=== PATIENT | female | born 1940 | race Caucasian/White ===

== ENCOUNTER → 2016-08-26 | Day surgery (SDC) | payer MEDICARE ==
[~2016-08-26] MED LIST: ALPR.5 PO; AMIO200T PO; ASPI81TA81 PO; BUME1TAB26 PO; BUPIVACAINE HCL PF 0.5% 10 ML VIAL ONE; BUPR150XL PO; CLINDAMYCIN PHOS 600 MG/4 ML VIAL ONE; COUM3TAB PO; DEXA2TAB PO; FAMO20TA2 PO; JUSTSOL EACH EYE; K-TA10TA PO; LACTATED RINGER'S 1000 ML INJ 1,000 ML ONE; LOSA25TA31 PO; METO25TA3 PO; MEVA40TA6 PO; NORV2.5T11 PO; POLY99.0 EACH EYE; PRIL20CA9 PO; TEMA30CA PO
== END | disposition home or self-care (01) ==
LOC: ESDC 12:20
PROVIDERS: ATTEND Podiatrist Foot & Ankle Surgery
DX: M77.41 Metatarsalgia, right foot (principal); Z01.810 Encounter for preprocedural cardiovascular examination; Z53.9 Procedure and treatment not carried out, unspecified reason
CPT/HCPCS: 93005; G0463; 99211; J7120

== ENCOUNTER 2016-11-08 12:49 | Emergency (ER) | payer MEDICARE ==
[~2016-11-08] VITALS: Ht 157.5 cm; Wt 52.7 kg
[~2016-11-08 12:49] MED LIST changes: -ALPR.5 PO; -AMIO200T PO; -ASPI81TA81 PO; -BUME1TAB26 PO; -BUPIVACAINE HCL PF 0.5% 10 ML VIAL ONE; -BUPR150XL PO; -CLINDAMYCIN PHOS 600 MG/4 ML VIAL ONE; -COUM3TAB PO; -DEXA2TAB PO; -FAMO20TA2 PO; -JUSTSOL EACH EYE; -K-TA10TA PO; -LACTATED RINGER'S 1000 ML INJ 1,000 ML ONE; -METO25TA3 PO; -POLY99.0 EACH EYE; -PRIL20CA9 PO; -TEMA30CA PO
[2016-11-08 12:51] VITALS: BP 133/60; PULSE 60; RESP 20; TEMP 97.3; O2SAT 95
--- NOTE | 2016-11-08 13:42 | PD ---
Physical Exam Time Seen by Provider: 13:39 Narrative 76 y/o female here for evaluation of depression. She reports that she underwent cardiac surgery early september and she has been feeling depressed since then. Sent here by PCP. Denies SI/HI, drug/etoh abuse. VSS Seen at triage desk. Awaiting bed placement. Data Data Last Documented VS Vital Signs Date Time Temp Pulse Resp B/P Pulse Ox O2 Delivery O2 Flow Rate FiO2 11/08/16 12:51 97.3 60 20 133/60 95 Room Air [facility] Medical Record Reviewed: Yes Supervised Visit with DANDY: Andrez Hernandez November 08, 2016 13:42
--- NOTE | 2016-11-08 15:10 | PD ---
HPI Chief Complaint: Anxiety Time Seen by Provider: 15:00 Travel History International Travel<30 days: No Contact w/Intl Traveler<30days: No Traveled to known affect area: No History of Present Illness HPI 76-year-old female with PMH of anxiety, depression, HTN, recent open heart surgery and ablation presents to the ED for evaluation of anhedonia and depression. The patient's daughter is at bedside and helps to provide the history. The patient underwent valve replacement and ablation at [facility] the beginning of the year. This was followed by a second hospitalization to treat pneumonia and CHF. She is been physically well since that time. She denies somatic complaints on presentation. However, the patient states that she has been feeling depressed, has no appetite, no interest in returning to work or participating in her normal activities. She also complains of insomnia, states she is only sleeping a few hours per night. She denies suicidal or homicidal ideation. The patient endorses history of ECT treatments in the 1979's and early 1999' and thinks that this is the only thing that will help her. She is currently being treated for anxiety with alprazolam. She saw her primary care provider today who increased her dose of alprazolam and wrote her an unknown prescription to help with sleep. The PCP also told her to seek treatment at the "psychiatric emergency room at [place]." PFS Past Medical History Arthritis: Yes (KAMINI HANDS) Asthma: No Autoimmune Disease: No Blood Disorders: No Anxiety: No Depression: No Heart Rhythm Problems: Yes (TACHY) Cancer: No Cardiac Catheterization: Yes Cardiovascular Problems: Yes High Cholesterol: No Chest Pain: No Congestive Heart Failure: No COPD: No Cerebrovascular Accident: No Diabetes: No Diminished Hearing: No Endocrine: No Glaucoma: No Genitourinary: No Headaches: Yes (BASE SKULL MOVES UP HEAD) Hypertension: Yes Immune Disorder: No Musculoskeletal: No Neurologic: No Psychiatric: No Reproductive: No Respiratory: No Migraines: No Myocardial Infarction: No Seizures: No Thyroid Disease: No Menopausal: Yes Past Surgical History Abdominal Surgery: No AICD: No Arteriovenous Shunt: No Cardiac Surgery: No Ear Surgery: No Endocrine Surgery: No Eye Surgery: No Genitourinary Surgery: No Gynecologic Surgery: Yes (HYSTERECTOMY) Hysterectomy: Yes Insulin Pump: No Joint Replacement: No Oral Surgery: No Pacemaker: No Thoracic Surgery: No Other Surgery: Yes (SURGERY TO FOOT APPROX. 1MONTH AGO) Social History Alcohol Use: No Tobacco Use: No Substance Use: No Allergies-Medications (Allergen,Severity, Reaction): Coded Allergies: Pen-Vee K (Verified Allergy, Severe, 11/08/16) Penicillin (Verified Allergy, Severe, 11/08/16) Sulfa (Verified Allergy, Severe, 11/08/16) Zoloft (Verified Allergy, Unknown, 11/08/16) Enalapril (Verified Adverse Reaction, Severe, 11/08/16) PANIC ATTACKS Reported Meds & Prescriptions Reported Meds & Active Scripts Active Reported Dexamethasone 2 Mg Tab 2 Mg PO DAILY Wellbutrin Xl 24 HR (Bupropion HCl) 150 Mg Tab 150 Mg PO DAILY K-Tab (Potassium Chloride) 10 Meq Tab 10 Meq PO DAILY Metoprolol Tartrate 25 Mg Tab 12.5 Mg PO BID Bumex (Bumetanide) 1 Mg Tab 1 Mg PO BID Aspir-81 (Aspirin) 81 Mg Tabdr 81 Mg PO DAILY Coumadin (Warfarin) 3 Mg Tab 3 Mg PO DAILY@1600 Just Tears Eye Drops (Artificial Tear Solution Opth Drops) 1 Linda Linda 1 Drop EACH EYE DAILY Amiodarone (Amiodarone HCl) 200 Mg Tab 200 Mg PO DAILY Xanax (Alprazolam) 0.5 Mg Tab 0.5 Mg PO BID Review of Systems General / Constitutional: No: Fever, Chills, Weight Gain, Weight Loss, Other Eyes: No: Blurred Vision, Visual changes HENT: No: Lightheadedness, Sore Throat, Rhinorrhea Cardiovascular: No: Chest Pain or Discomfort, Palpitations, Irregular Rhythm, Diaphoresis, Syncope, Edema Respiratory: No: Cough, Shortness of Breath Gastrointestinal: Positive: Loss of Appetite, No: Nausea, Vomiting, Abdominal Pain, Changes in Bowel Habits Genitourinary: No: Urgency, Frequency Musculoskeletal: No: Weakness, Edema Neurologic: No: Weakness, Dizziness, Syncope, Change in Mentation Psychiatric: Positive: Anxiety, Depression, No: Suicidal Ideations, Substance Abuse, Homicidal Ideation Hematologic/Lymphatic: Positive: Easy Bruising Physical Exam Narrative GENERAL: Well-nourished, well-developed petite white female in no acute distress. SKIN: Focused skin assessment warm/dry. Multiple old contusions without signs of infection. HEAD: Normocephalic. EYES: No scleral icterus. No injection or drainage. NECK: Supple, trachea midline. No JVD or lymphadenopathy. CARDIOVASCULAR: Regular rate and rhythm without murmurs, gallops, or rubs. 2+ DP and radial pulses bilaterally. RESPIRATORY: Breath sounds clear and equal bilaterally. No accessory muscle use. GASTROINTESTINAL: Abdomen soft, non-tender, nondistended. Active bowel sounds. MUSCULOSKELETAL: No cyanosis, or edema. The patient is ambulatory and moves extremities spontaneously. BACK: Nontender without obvious deformity. No CVA tenderness. Data Data Last Documented VS Vital Signs Date Time Temp Pulse Resp B/P Pulse Ox O2 Delivery O2 Flow Rate FiO2 11/08/16 19:13 55 16 177/72 96 Room Air 11/08/16 12:51 97.3 Orders Complete Blood Count With Diff (11/08/16 14:58) Comprehensive Metabolic Panel (11/08/16 14:58) Thyroid Stimulating Hormone (11/08/16 14:58) Urinalysis - C+S If Indicated (11/08/16 14:58) Oximetry (11/08/16 14:58) Iv Access Insert/Monitor (11/08/16 14:58) Ecg Monitoring (11/08/16 14:58) Drug Screen, Random Urine (11/08/16 14:58) Labs Laboratory Tests Test 11/08/16 11/08/16 15:45 16:00 White Blood Count 13.6 TH/MM3 Red Blood Count 4.49 MIL/MM3 Hemoglobin 13.0 GM/DL Hematocrit 38.8 % Mean Corpuscular Volume 86.4 FL Mean Corpuscular Hemoglobin 29.0 PG Mean Corpuscular Hemoglobin 33.5 % Concent Red Cell Distribution Width 16.0 % Platelet Count 272 TH/MM3 Mean Platelet Volume 8.3 FL Neutrophils (%) (Auto) 85.4 % Lymphocytes (%) (Auto) 6.0 % Monocytes (%) (Auto) 8.4 % Eosinophils (%) (Auto) 0.1 % Basophils (%) (Auto) 0.1 % Neutrophils # (Auto) 11.6 TH/MM3 Lymphocytes # (Auto) 0.8 TH/MM3 Monocytes # (Auto) 1.1 TH/MM3 Eosinophils # (Auto) 0.0 TH/MM3 Basophils # (Auto) 0.0 TH/MM3 CBC Comment DIFF FINAL Differential Comment Sodium Level 136 MEQ/L Potassium Level 4.1 MEQ/L Chloride Level 95 MEQ/L Carbon Dioxide Level 31.6 MEQ/L Anion Gap 9 MEQ/L Blood Urea Nitrogen 45 MG/DL Creatinine 1.20 MG/DL Estimat Glomerular Filtration 43 ML/MIN Rate Random Glucose 95 MG/DL Calcium Level 9.4 MG/DL Total Bilirubin 0.4 MG/DL Aspartate Amino Transf 53 U/L (AST/SGOT) Alanine Aminotransferase 86 U/L (ALT/SGPT) Alkaline Phosphatase 129 U/L Total Protein 7.4 GM/DL Albumin 3.8 GM/DL Thyroid Stimulating Hormone 0.775 uIU/ML 3rd Gen Urine Color YELLOW Urine Turbidity CLEAR Urine pH 6.5 Urine Specific [place] 1.018 Urine Protein NEG mg/dL Urine Glucose (UA) NEG mg/dL Urine Ketones NEG mg/dL Urine Occult Blood NEG Urine Nitrite NEG Urine Bilirubin NEG Urine Urobilinogen LESS THAN 2.0 MG/DL Urine Leukocyte Esterase LARGE Urine RBC 1 /hpf Urine WBC 5 /hpf Urine Squamous Epithelial 4 /hpf Cells Urine Hyaline Casts 5 /lpf Urine Mucus FEW /lpf Microscopic Urinalysis Comment CULT NOT INDICATED MDM Medical Decision Making Medical Screen Exam Complete: Yes Emergency Medical Condition: Yes Differential Diagnosis Adjustment disorder versus anxiety versus bipolar versus depression versus dementia versus electrolyte disorder versus malingering versus mood disorder versus ODD versus psychosis versus PTSD versus schizophrenia versus schizoaffective disorder versus substance-induced mood disorder versus other Narrative Course 76-year-old female with PMH of anxiety, depression, HTN, recent open heart surgery and ablation presents to the ED for evaluation of anhedonia and depression. The patient's daughter is at bedside and helps to provide the history. The patient underwent valve replacement and ablation at [facility] the beginning of the year. This was followed by a second hospitalization to treat pneumonia and CHF. She is been physically well since that time. She denies somatic complaints on presentation. However, the patient states that she has been feeling depressed, has no appetite, no interest in returning to work or participating in her normal activities. She also complains of insomnia, states she is only sleeping a few hours per night. She denies suicidal or homicidal ideation. The patient endorses history of ECT treatments in the s and early and thinks that this is the only thing that will help her. She is currently being treated for anxiety with alprazolam. She saw her primary care provider today who increased her dose of alprazolam and wrote her an unknown prescription to help with sleep. The PCP also told her to seek treatment at the "psychiatric emergency room at [place]." Vitals reviewed. Physical exam reveals a well-appearing white female in no acute distress. Chest clear auscultation bilaterally. Abdomen soft, nontender. No CVA tenderness. No lower extremity edema. CBC: WBC 13.6, hemoglobin 13.0 CMP: BUN 45, creatinine 1.2. AST 53, ALT 86 TSH 0.775 UA: No culture indicated Drug screen: Patient was hospitalized for PNA and CHF October 19. She is currently taking steroids. I reviewed the patient's chest CT taken at [facility] dated : Mildly elevated right diaphragm with right base atelectasis. Minimal left upper lobe infiltrate. Small solid nodular density in the right lung apex. Mild nodularity of the posterior right pleura. Follow-up CT recommended in 3-4 months. This is being followed by the PCP. The psych nurse came and discussed the outpatient resources available to the patient and her family. During this time the patient states that she was seen by a psychiatrist earlier this month. She certainly doesn't meet [place] Act criteria at this time and seems to have multiple outpatient resources. She's discharged home for outpatient follow up. Diagnosis Primary Impression: Anxiety Additional Impression: Depression Qualified Code: F32.9 - Depression, unspecified depression type Referrals: Primary Care Physician Psychiatrist Patient Instructions: Anxiety (ED), Depression (ED), General Instructions Additional Instructions: Follow up with your primary care provider and psychiatrist as discussed. Return to the ED for any urgent or emergent medical condition. Disposition: 01 DISCHARGE HOME Condition: Stable Frannie Olguin November 08, 2016 15:10 Frannie Olguin November 08, 2016 15:10
[2016-11-08 15:53] VITALS: BP 151/67; PULSE 53; RESP 16; O2SAT 96
[2016-11-08 16:20] LABS: AUTOMATED NEUTROPHIL # 11.6 TH/MM3 (1.8-7.7); BASOPHIL % 0.1 % (0.0-2.0); EOSINOPHIL % 0.1 % (0.0-4.0); HEMATOCRIT 38.8 % (35.0-46.0); HEMO FLAGS DIFF FINAL; LYMPHOCYTE # 0.8 TH/MM3 (1.0-4.8); MEAN CELL VOLUME 86.4 FL (80.0-100.0); MEAN CORPUSCULAR HGB CONC 33.5 % (32.0-36.0); MONO % 8.4 % (0.0-8.0); NEUT % 85.4 % (16.0-70.0); PLATELET COUNT 272 TH/MM3 (150-450); RED BLOOD COUNT 4.49 MIL/MM3 (4.00-5.30); WHITE BLOOD COUNT 13.6 TH/MM3 (4.0-11.0)
[2016-11-08 16:51] LABS: ALKALINE PHOSPHATASE 129 U/L (45-117); ALT (GPT) 86 U/L (10-53); TOTAL BILIRUBIN ADULT 0.4 MG/DL (0.2-1.0)
[2016-11-08 17:03] LABS: BLOOD, URINE NEG (NEG); GLUCOSE,URINE NEG (NEG); HYALINE CAST, URINE 5 /lpf (RARE); KETONE, URINE NEG (NEG); MUCUS URINE FEW /lpf (OCC); NITRITE,URINE NEG (NEG); PH, URINE 6.5 (5.0-8.5); SQUAMOUS EPITHELIAL CELL URINE 4 /hpf (0-5); URINE COLOR YELLOW (YELLW/STRAW)
[2016-11-08 17:04] LABS: COMMENT (UR) CULT NOT INDICATED; CULTURE IF INDICATED CULT NOT INDICATED
[2016-11-08 17:14] LABS: ANION GAP 9 MEQ/L (5-15); AST (GOT) 53 U/L (15-37); BICARBONATE 31.6 MEQ/L (21.0-32.0); BLOOD UREA NITROGEN 45 MG/DL (7-18); CHLORIDE 95 MEQ/L (98-107); GLOMERULAR FILTRATION RATE 43 ML/MIN (>89); POTASSIUM 4.1 MEQ/L (3.5-5.1); SODIUM (NA) 136 MEQ/L (136-145)
[2016-11-08] MEDS ORDERED: ALPR.5 PO (18:20)
[2016-11-08] MEDS ORDERED: COUM3TAB PO (18:28)
[2016-11-08] MEDS ORDERED: AMIO200T PO (18:28)
[2016-11-08] MEDS ORDERED: BUME1TAB26 PO (18:28)
[2016-11-08] MEDS ORDERED: K-TA10TA PO (18:28)
[2016-11-08] MEDS ORDERED: ASPI81TA81 PO (18:28)
[2016-11-08] MEDS ORDERED: METO25TA3 PO (18:28)
[2016-11-08] MEDS ORDERED: DEXA2TAB PO (18:28)
[2016-11-08] MEDS ORDERED: BUPR150XL PO (18:28)
[2016-11-08] MEDS ORDERED: JUSTSOL EACH EYE (18:28)
[2016-11-08 19:13] VITALS: BP 177/72; PULSE 55; RESP 16; O2SAT 96
[2016-11-09 00:43] LABS: AMPHETAMINE, URINE NEG (NEG); BARBITURATES, URINE NEG (NEG); COCAINE, URINE NEG (NEG)
== END 2016-11-08 20:01 | disposition home or self-care (01) ==
LOC: NEPD 12:49
DX: F41.8 Other specified anxiety disorders (principal); I10 Essential (primary) hypertension; Z95.2 Presence of prosthetic heart valve; I50.9 Heart failure, unspecified
CPT/HCPCS: 80053; 80307; 81001; 84443; 85025; 99284

== ENCOUNTER 2016-12-09 11:52 | Emergency (ER) | payer MEDICARE ==
[~2016-12-09] VITALS: Ht 157.5 cm; Wt 52.0 kg
[~2016-12-09 11:52] MED LIST changes: +ALPR.5 PO; +AMIO200T PO; +ASPI81TA81 PO; +BUME1TAB26 PO; +BUPR150XL PO; +COUM3TAB PO; +DEXA2TAB PO; +JUSTSOL EACH EYE; +K-TA10TA PO; -LOSA25TA31 PO; +METO25TA3 PO; -MEVA40TA6 PO; -NORV2.5T11 PO
[2016-12-09 11:55] VITALS: BP 174/73; PULSE 84; RESP 14; TEMP 98.2; O2SAT 98
--- NOTE | 2016-12-09 12:03 | PD ---
Physical Exam Time Seen by Provider: 12:00 Narrative 76yo F w/ multiple complaints: abd pain after eating, blurred vision, shakiness , sweating to half her head, and something wrong with her brain. Some symptoms started in September after heart surgery and some are more recent. Denies fever, N , V, diarrhea. Patient seen in triage. VS reviewed. Patient awaiting bed placement. Data Data Last Documented VS Vital Signs Date Time Temp Pulse Resp B/P Pulse Ox O2 Delivery O2 Flow Rate FiO2 12/09/16 11:55 98.2 84 14 174/73 98 MDM Supervised Visit with DANDY: Symone Michel Dec 09, 2016 12:03
[2016-12-09] MEDS ORDERED: TEMA30CA PO (13:03)
[2016-12-09] MEDS ORDERED: POLY99.0 EACH EYE (13:03)
[2016-12-09] MEDS ORDERED: FAMO20TA2 PO (13:03)
--- NOTE | 2016-12-09 13:12 | PD ---
HPI Chief Complaint: Abdominal Pain Time Seen by Provider: 13:09 Travel History International Travel<30 days: No Contact w/Intl Traveler<30days: No Traveled to known affect area: No History of Present Illness HPI Patient comes in complaining of feeling there is something wrong to left side of her head. Patient states she's been having blurry vision, intermittent headaches, and sweating on the left side of her head only ongoing intermittently for over a month now. Patient denies anything making it better or worse. Patient denies being evaluated for this previously. Patient also complaining of epigastric pain but only when she eats. Patient reports pain is over her site of previous draining tubes from previous open heart surgery. Patient denies any nausea, vomiting, back pain or chest pain, shortness of breath. Patient's daughter is at bedside and she is concerned feels as though her mother's health is worse since having heart surgery. Patient daughter also is concerned as patient never received any physical therapy after surgery and try to get into a rehabilitation facility but was told she had to be in the hospital for 3 days before she can to rehabilitation facility. PFSH Past Medical History Arthritis: Yes (KAMINI HANDS) Asthma: No Autoimmune Disease: No Blood Disorders: No Anxiety: Yes Depression: No Heart Rhythm Problems: Yes (TACHY) Cancer: No Cardiac Catheterization: Yes Cardiovascular Problems: Yes High Cholesterol: No Chest Pain: No Congestive Heart Failure: No COPD: No Cerebrovascular Accident: No Coronary Artery Disease: Yes Diabetes: No Diminished Hearing: No Endocrine: No Glaucoma: No Genitourinary: No Headaches: Yes (BASE SKULL MOVES UP HEAD) Hypertension: Yes Immune Disorder: No Musculoskeletal: No Neurologic: No Psychiatric: No Reproductive: No Respiratory: No Migraines: No Myocardial Infarction: No Seizures: No Thyroid Disease: No ?: Not Menopausal: Yes Past Surgical History Abdominal Surgery: No AICD: No Arteriovenous Shunt: No Cardiac Surgery: Yes Coronary Artery Bypass Graft: Yes (2015) Ear Surgery: No Endocrine Surgery: No Eye Surgery: No Genitourinary Surgery: No Gynecologic Surgery: Yes (HYSTERECTOMY) Hysterectomy: Yes Insulin Pump: No Joint Replacement: No Oral Surgery: No Pacemaker: No Thoracic Surgery: No Other Surgery: Yes (SURGERY TO FOOT APPROX. 1MONTH AGO) Social History Alcohol Use: No Tobacco Use: No Substance Use: No Allergies-Medications (Allergen,Severity, Reaction): Coded Allergies: Pen-Vee K (Verified Allergy, Severe, 11/08/16) Penicillin (Verified Allergy, Severe, 11/08/16) Sulfa (Verified Allergy, Severe, 11/08/16) Zoloft (Verified Allergy, Unknown, 11/08/16) Enalapril (Verified Adverse Reaction, Severe, 11/08/16) PANIC ATTACKS Reported Meds & Prescriptions Reported Meds & Active Scripts Active Prilosec (Omeprazole) 20 Mg Cap 20 Mg PO DAILY Reported Artificial Tears Opth Drops (Polyvinyl Alcohol) 1.4% Soln 1-2 Drop EACH EYE PRN PRN Temazepam 30 Mg Cap 30 Mg PO HS PRN Famotidine 20 Mg Tab 20 Mg PO DAILY Dexamethasone 2 Mg Tab 4 Mg PO DAILY Wellbutrin Xl 24 HR (Bupropion HCl) 150 Mg Tab 300 Mg PO DAILY K-Tab (Potassium Chloride) 10 Meq Tab 10 Meq PO DAILY Metoprolol Tartrate 25 Mg Tab 12.5 Mg PO BID Bumex (Bumetanide) 1 Mg Tab 1 Mg PO DAILY Aspir-81 (Aspirin) 81 Mg Tabdr 81 Mg PO DAILY Coumadin (Warfarin) 3 Mg Tab 3 Mg PO DAILY@1600 Amiodarone (Amiodarone HCl) 200 Mg Tab 200 Mg PO DAILY Xanax (Alprazolam) 0.5 Mg Tab 0.5 Mg PO BID Review of Systems Except as stated in HPI: all other systems reviewed are Neg Physical Exam Narrative GENERAL: Well-developed, well nourished, in no acute distress, and non-ill appearing. SKIN: Focused skin assessment warm and dry. HEAD: Atraumatic. Normocephalic. EYES: Pupils equal and round. EOMI. No scleral icterus. No injection or drainage. ENT: No nasal bleeding or discharge. Mucous membranes pink and moist. NECK: Trachea midline. No JVD. Supple. No nuclear rigidity. CARDIOVASCULAR: Regular rate and rhythm. No murmur appreciated. RESPIRATORY: No accessory muscle use. No respiratory distress. Clear to auscultation. Breath sounds equal bilaterally. GASTROINTESTINAL: Abdomen soft, non-tender, nondistended. Hepatic and splenic margins not palpable. Normal bowel sounds 4. No pulsatile mass. MUSCULOSKELETAL: No obvious deformities. No clubbing. No cyanosis. No edema. Full range of motion. NEUROLOGICAL: Awake and alert. No obvious cranial nerve deficits. Motor grossly within normal limits. Normal speech. PSYCHIATRIC: Appropriate mood and affect; insight and judgment normal. Data Data Last Documented VS Vital Signs Date Time Temp Pulse Resp B/P Pulse Ox O2 Delivery O2 Flow Rate FiO2 12/09/16 15:05 58 18 178/75 98 Room Air 12/09/16 11:55 98.2 Orders Complete Blood Count With Diff (12/09/16 13:06) Comprehensive Metabolic Panel (12/09/16 13:06) Lipase (12/09/16 13:06) Prothrombin Time / Inr (Pt) (12/09/16 13:06) Act Partial Throm Time (Ptt) (12/09/16 13:06) Urinalysis - C+S If Indicated (12/09/16 13:06) Iv Access Insert/Monitor (12/09/16 13:06) Ecg Monitoring (12/09/16 13:06) Oximetry (12/09/16 13:06) Sodium Chloride 0.9% Flush (Ns Flush) (12/09/16 13:15) Ct Brain W/O Iv Contrast(Rout) (12/09/16 ) Ed Poc Ultrasound (12/09/16 ) Labs Laboratory Tests Test 12/09/16 12/09/16 13:15 13:35 White Blood Count 7.4 TH/MM3 Red Blood Count 4.22 MIL/MM3 Hemoglobin 12.5 GM/DL Hematocrit 36.3 % Mean Corpuscular Volume 86.0 FL Mean Corpuscular Hemoglobin 29.6 PG Mean Corpuscular Hemoglobin 34.5 % Concent Red Cell Distribution Width 17.1 % Platelet Count 342 TH/MM3 Mean Platelet Volume 7.0 FL Neutrophils (%) (Auto) 66.5 % Lymphocytes (%) (Auto) 18.5 % Monocytes (%) (Auto) 13.0 % Eosinophils (%) (Auto) 1.3 % Basophils (%) (Auto) 0.7 % Neutrophils # (Auto) 4.9 TH/MM3 Lymphocytes # (Auto) 1.4 TH/MM3 Monocytes # (Auto) 1.0 TH/MM3 Eosinophils # (Auto) 0.1 TH/MM3 Basophils # (Auto) 0.1 TH/MM3 CBC Comment AUTO DIFF Differential Comment AUTO DIFF CONFIRMED Prothrombin Time 11.4 SEC Prothromb Time International 1.0 RATIO Ratio Activated Partial 26.6 SEC Thromboplast Time Sodium Level 137 MEQ/L Potassium Level 4.0 MEQ/L Chloride Level 101 MEQ/L Carbon Dioxide Level 27.1 MEQ/L Anion Gap 9 MEQ/L Blood Urea Nitrogen 13 MG/DL Creatinine 0.79 MG/DL Estimat Glomerular Filtration 70 ML/MIN Rate Random Glucose 97 MG/DL Calcium Level 9.3 MG/DL Total Bilirubin 0.6 MG/DL Aspartate Amino Transf 34 U/L (AST/SGOT) Alanine Aminotransferase 43 U/L (ALT/SGPT) Alkaline Phosphatase 118 U/L Total Protein 6.8 GM/DL Albumin 3.4 GM/DL Lipase 198 U/L Urine Color YELLOW Urine Turbidity CLEAR Urine pH 6.0 Urine Specific [place] 1.009 Urine Protein NEG mg/dL Urine Glucose (UA) NEG mg/dL Urine Ketones NEG mg/dL Urine Occult Blood NEG Urine Nitrite NEG Urine Bilirubin NEG Urine Urobilinogen LESS THAN 2.0 MG/DL Urine Leukocyte Esterase TRACE Urine RBC 1 /hpf Urine WBC 1 /hpf Urine Squamous Epithelial 1 /hpf Cells Microscopic Urinalysis Comment CULT NOT INDICATED MDM Medical Decision Making Medical Screen Exam Complete: Yes Emergency Medical Condition: Yes Interpretation(s) CT head read by the radiologist shows: No acute intracranial abnormality. Differential Diagnosis Cholecystitis, pancreatitis, electrolyte abnormality, dehydration, acute cranial hemorrhage, mass, headaches, other Narrative Course The patient presented with upper epigastric abdominal pain suspicious for gastritis. There was no significant history of diarrhea and no fever. The patient appeared comfortable, well hydrated and the abdominal exam was unremarkable and minimal to nontender to me. Laboratory and radiographic evaluation revealed no significant abnormality. There was no evidence of an acute, surgical abdomen at this time. There was no clinical evidence to support cholecystitis/cholelithiasis, pancreatitis, perforation of gastric ulcer, colitis, diverticulitis, bacterial peritonitis, obstruction, volvulus, early appendicitis, or hernial incarceration or strangulation nor significant GIB at this time. There was no evidence to support vascular pathology such as AAA, mesenteric ischemia. There was also no clinical evidence by history, exam or risk factors to suggest atypical presentation of cardiac disease such as ACS, AMI or atypical angina. No evidence to suggest genitourinary etiology as well. During the course of the ED visit, the patient noted improvement. Clinical picture was discussed with the patient, as well as plan of care. The patient was instructed to follow up with their physician. Abdominal pain warnings were discussed with the patient. The patient is to return if worsens, pain worsens or changes, develop fever, inability to tolerate fluids with or without vomiting, unable to establish follow up or as needed. The patient agrees with plan. The patients headache appeared nonspecific, intermittent, and not currently with the headache. Due to patients subjective complaint and presentation, a head CT was performed which was normal and without evidence of blood or mass. The patient looks great and is in no significant objective discomfort currently. The patient is in no distress and the patients neurological exam is normal, neck is supple and without meningismus. The headache is not consistent with meningitis or infection, nor does it appear consistent with intracranial bleed (SAH etc.), carotid dissection, nor mass by history, examination and evaluation. There is very little clinical evidence to suggest missed hemorrhage on CT and/or sentinel bleed thus an invasive procedure such as a lumbar puncture was not performed. Outpatient follow up was instructed. The patient was instructed to return as needed or if symptoms changed or worsened, fever developed or inability to tolerate fluids. The patient agreed with plan. Patient in no obvious distress upon re-evaluation. All pertinent laboratory/ Radiology result(s) discussed with patient/family. Discussed patient with Dr. Ocampo, who saw and evaluated the patient is and agreement with plan of care and disposition. Any questions/concerns in reference to patient diagnosis/ condition discussed and clarified prior to patient's discharge. Reinforced sheer importance of close follow up with patient's primary physician or primary care clinic. Instructed patient to return to ED immediately, if symptoms return/ worsen. Pt showed understanding of above instructions. Further instructions and recommendations were detailed in discharge paperwork. Pt ambulated without difficulty out of ED at discharge. 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 Take all medications prescribed. Return to the emergency department if symptoms get worse. Med/Other Pt SpecificInfo: Prescription(s) given Scripts Omeprazole (Prilosec)20 Mg Cap20 Mg PO DAILY #14 CAP Ref 0 Prov:Parris Ocampo MD 12/09/16 Disposition: 01 DISCHARGE HOME Condition: Stable Nhan Cano Dec 09, 2016 13:12
[2016-12-09] MEDS ORDERED: SODIUM CHLORIDE 0.9% FLUSH 10 ML FLUSH IV FLUSH PRN (13:15)
[2016-12-09 13:18] VITALS: O2SAT 97
[2016-12-09 13:30] LABS: AUTOMATED NEUTROPHIL # 4.9 TH/MM3 (1.8-7.7); BASOPHIL # 0.1 TH/MM3 (0-0.2); BASOPHIL % 0.7 % (0.0-2.0); EOSINOPHIL # 0.1 TH/MM3 (0-0.4); EOSINOPHIL % 1.3 % (0.0-4.0); HEMATOCRIT 36.3 % (35.0-46.0); LYMPH % 18.5 % (9.0-44.0); LYMPHOCYTE # 1.4 TH/MM3 (1.0-4.8); MEAN CORPUSCULAR HEMOGLOBIN 29.6 PG (27.0-34.0); MEAN CORPUSCULAR HGB CONC 34.5 % (32.0-36.0); NEUT % 66.5 % (16.0-70.0); PLATELET COUNT 342 TH/MM3 (150-450); RED BLOOD COUNT 4.22 MIL/MM3 (4.00-5.30); RED CELL DISTRIBUTION WIDTH 17.1 % (11.6-17.2); WHITE BLOOD COUNT 7.4 TH/MM3 (4.0-11.0)
[2016-12-09 13:33] LABS: HEMO FLAGS AUTO DIFF
[2016-12-09 13:37] LABS: APTT (PATIENT) 26.6 SEC (24.3-30.1); PROTHROMBIN TIME - PATIENT 11.4 SEC (9.8-11.6)
[2016-12-09 13:44] LABS: ALT (GPT) 43 U/L (10-53); ANION GAP 9 MEQ/L (5-15); AST (GOT) 34 U/L (15-37); BICARBONATE 27.1 MEQ/L (21.0-32.0); BLOOD UREA NITROGEN 13 MG/DL (7-18); CHLORIDE 101 MEQ/L (98-107); GLOMERULAR FILTRATION RATE 70 ML/MIN (>89); SODIUM (NA) 137 MEQ/L (136-145)
[2016-12-09 13:47] LABS: ALKALINE PHOSPHATASE 118 U/L (45-117); TOTAL BILIRUBIN ADULT 0.6 MG/DL (0.2-1.0)
[2016-12-09 13:54] LABS: BLOOD, URINE NEG (NEG); COMMENT (UR) CULT NOT INDICATED; CULTURE IF INDICATED CULT NOT INDICATED; GLUCOSE,URINE NEG (NEG); KETONE, URINE NEG (NEG); NITRITE,URINE NEG (NEG); SQUAMOUS EPITHELIAL CELL URINE 1 /hpf (0-5); URINE COLOR YELLOW (YELLW/STRAW)
[2016-12-09 14:10] LABS: SCAN/DIFF AUTO DIFF CONFIRMED
[2016-12-09 15:05] VITALS: BP 178/75; PULSE 58; RESP 18; O2SAT 98
--- NOTE | 2016-12-09 15:14 | RADRPT ---
EXAM DATE/TIME: 12/09/2016 14:24 [facility] COMPARISON: CT BRAIN W/O CONTRAST, June 19, 2010, 8:13. INDICATIONS : Blurred vision and sweating on left side of head only RADIATION DOSE: 56.35 CTDIvol (mGy) MEDICAL HISTORY : Cardiovascular disease. Hypertension. SURGICAL HISTORY : Hysterectomy. ENCOUNTER: Initial ACUITY: 1 day PAIN SCALE: 0/10 LOCATION: Left cranial TECHNIQUE: Multiple contiguous axial images were obtained of the head. Using automated exposure control and adj ustment of the mA and/or kV according to patient size, radiation dose was kept as low as reasonably a chievable to obtain optimal diagnostic quality images. FINDINGS: CEREBRUM: The ventricles are normal for age. Puente-white matter differentiation is maintained. No evidence of m idline shift, mass lesion, hemorrhage or acute infarction. No extra-axial fluid collections are seen . POSTERIOR FOSSA: The cerebellum and brainstem are intact. The 4th ventricle is midline. The cerebellopontine angle i s unremarkable. EXTRACRANIAL: The visualized portion of the orbits is intact. SKULL: The calvaria is intact. No evidence of skull fracture. Paranasal sinuses and mastoid air cells are c lear. CONCLUSION: 1. No acute intracranial abnormality. Butch Bull MD on December 09, 2016 at 15:10 Board Certified Radiologist. This report was verified electronically.
--- NOTE | 2016-12-09 15:22 | PD ---
Data Data Last Documented VS Vital Signs Date Time Temp Pulse Resp B/P Pulse Ox O2 Delivery O2 Flow Rate FiO2 12/09/16 15:05 58 18 178/75 98 Room Air 12/09/16 11:55 98.2 Orders Complete Blood Count With Diff (12/09/16 13:06) Comprehensive Metabolic Panel (12/09/16 13:06) Lipase (12/09/16 13:06) Prothrombin Time / Inr (Pt) (12/09/16 13:06) Act Partial Throm Time (Ptt) (12/09/16 13:06) Urinalysis - C+S If Indicated (12/09/16 13:06) Iv Access Insert/Monitor (12/09/16 13:06) Ecg Monitoring (12/09/16 13:06) Oximetry (12/09/16 13:06) Sodium Chloride 0.9% Flush (Ns Flush) (12/09/16 13:15) Ct Brain W/O Iv Contrast(Rout) (12/09/16 ) Ed Poc Ultrasound (12/09/16 ) Labs Laboratory Tests Test 12/09/16 12/09/16 13:15 13:35 White Blood Count 7.4 TH/MM3 Red Blood Count 4.22 MIL/MM3 Hemoglobin 12.5 GM/DL Hematocrit 36.3 % Mean Corpuscular Volume 86.0 FL Mean Corpuscular Hemoglobin 29.6 PG Mean Corpuscular Hemoglobin 34.5 % Concent Red Cell Distribution Width 17.1 % Platelet Count 342 TH/MM3 Mean Platelet Volume 7.0 FL Neutrophils (%) (Auto) 66.5 % Lymphocytes (%) (Auto) 18.5 % Monocytes (%) (Auto) 13.0 % Eosinophils (%) (Auto) 1.3 % Basophils (%) (Auto) 0.7 % Neutrophils # (Auto) 4.9 TH/MM3 Lymphocytes # (Auto) 1.4 TH/MM3 Monocytes # (Auto) 1.0 TH/MM3 Eosinophils # (Auto) 0.1 TH/MM3 Basophils # (Auto) 0.1 TH/MM3 CBC Comment AUTO DIFF Differential Comment AUTO DIFF CONFIRMED Prothrombin Time 11.4 SEC Prothromb Time International 1.0 RATIO Ratio Activated Partial 26.6 SEC Thromboplast Time Sodium Level 137 MEQ/L Potassium Level 4.0 MEQ/L Chloride Level 101 MEQ/L Carbon Dioxide Level 27.1 MEQ/L Anion Gap 9 MEQ/L Blood Urea Nitrogen 13 MG/DL Creatinine 0.79 MG/DL Estimat Glomerular Filtration 70 ML/MIN Rate Random Glucose 97 MG/DL Calcium Level 9.3 MG/DL Total Bilirubin 0.6 MG/DL Aspartate Amino Transf 34 U/L (AST/SGOT) Alanine Aminotransferase 43 U/L (ALT/SGPT) Alkaline Phosphatase 118 U/L Total Protein 6.8 GM/DL Albumin 3.4 GM/DL Lipase 198 U/L Urine Color YELLOW Urine Turbidity CLEAR Urine pH 6.0 Urine Specific [place] 1.009 Urine Protein NEG mg/dL Urine Glucose (UA) NEG mg/dL Urine Ketones NEG mg/dL Urine Occult Blood NEG Urine Nitrite NEG Urine Bilirubin NEG Urine Urobilinogen LESS THAN 2.0 MG/DL Urine Leukocyte Esterase TRACE Urine RBC 1 /hpf Urine WBC 1 /hpf Urine Squamous Epithelial 1 /hpf Cells Microscopic Urinalysis Comment CULT NOT INDICATED MDM Supervised Visit with DANDY: Yes Narrative Course The history, exam, and medical decision-making in the associated midlevel provider note were completed with my assistance. I reviewed and agree with the findings presented. I attest that I had a [id number] encounter with the patient on the same day, and personally performed and documented my assessment and findings in the medical record. *My assessment and Findings: This is a 76-year-old female who presents the emergency department having had a valve repair in August of this year who has never felt well since. She has multiple nonspecific complaints including headache and epigastric abdominal pain worse when she eats. Labs are obtained which are reassuring. I did a bedside ultrasound which was negative for gallstones or cholecystitis. I suspect she has gastritis or peptic ulcer disease. She had an endoscopy scheduled but canceled it. 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 CT the head was obtained which was reassuring. Patient also has electively discontinued her Coumadin for atrial fibrillation. I recommended that she reinstated. She has no history of thromboembolism or stroke so I don't think she requires Lovenox bridging at this time. Patient will be discharged home. Parris Ocampo MD Dec 09, 2016 15:22
[2016-12-09] MEDS ORDERED: PRIL20CA9 PO (15:33)
== END 2016-12-09 16:39 | disposition home or self-care (01) ==
LOC: NEPD 11:52
DX: R51 Headache (principal); H53.8 Other visual disturbances; R61 Generalized hyperhidrosis; I10 Essential (primary) hypertension; Z95.1 Presence of aortocoronary bypass graft; Z79.01 Long term (current) use of anticoagulants
CPT/HCPCS: 70450; 80053; 81001; 83690; 85025; 85610; 85730

== ENCOUNTER 2016-12-16 13:28 | Emergency (ER) | payer MEDICARE ==
[~2016-12-16] VITALS: Ht 157.5 cm; Wt 50.0 kg
[~2016-12-16 13:28] MED LIST changes: +FAMO20TA2 PO; -JUSTSOL EACH EYE; +POLY99.0 EACH EYE; +PRIL20CA9 PO; +TEMA30CA PO
[2016-12-16 13:30] VITALS: BP 169/70; PULSE 64; RESP 20; TEMP 97.7; O2SAT 96
--- NOTE | 2016-12-16 15:31 | PD ---
HPI Chief Complaint: Psychiatric Symptoms Time Seen by Provider: 14:47 Travel History International Travel<30 days: No Contact w/Intl Traveler<30days: No Traveled to known affect area: No History of Present Illness HPI This is a 76-year-old female who presents to the emergency department with multiple complaints including blurry vision, unsteady gait, shakiness and generalized weakness. She says the symptoms have been present ever since she had heart surgery earlier this year. Her daughter says she went through several hospital admissions for pneumonia and pleural effusion and says she's been out she's been very fatigued. Her daughter says she just sits on the couch and watches TV all day and then she falls asleep. She is having trouble sleeping at night because she sleeps often during the day. She says she's lost 5 pounds in the past week. They've seen her primary care physician who has performed CT scans and blood work but they haven't been able to identify any physiologic problem. They've also been seen in the emergency department multiple times. The patient is hoping to have a PET scan done care she is convinced that something is wrong. She does have an endoscopy scheduled for tomorrow. She has a history of depression requiring ECT in the past. PFSH Past Medical History Hx Anticoagulant Therapy: Yes Arthritis: Yes (KAMINI HANDS) Asthma: No Autoimmune Disease: No Blood Disorders: No Anxiety: Yes Depression: No Heart Rhythm Problems: Yes (TACHY) Cancer: No Cardiac Catheterization: Yes Cardiovascular Problems: Yes High Cholesterol: No Chest Pain: No Congestive Heart Failure: No COPD: No Cerebrovascular Accident: No Coronary Artery Disease: Yes Diabetes: No Diminished Hearing: No Endocrine: No Gastrointestinal Disorders: No Glaucoma: No Genitourinary: No Headaches: Yes (BASE SKULL MOVES UP HEAD) Hypertension: Yes Immune Disorder: No Implanted Vascular Access Dvce: No Musculoskeletal: No Neurologic: No Psychiatric: No Reproductive: No Respiratory: No Migraines: No Myocardial Infarction: No Seizures: No Thyroid Disease: No Menopausal: Yes Past Surgical History Abdominal Surgery: No AICD: No Arteriovenous Shunt: No Cardiac Surgery: Yes Coronary Artery Bypass Graft: Yes (2015) Ear Surgery: No Endocrine Surgery: No Eye Surgery: No Genitourinary Surgery: No Gynecologic Surgery: Yes (HYSTERECTOMY) Hysterectomy: Yes Insulin Pump: No Joint Replacement: No Neurologic Surgery: No Oral Surgery: No Pacemaker: No Thoracic Surgery: No Other Surgery: Yes (SURGERY TO FOOT APPROX. 1MONTH AGO) Social History Alcohol Use: No Tobacco Use: No Substance Use: No Allergies-Medications (Allergen,Severity, Reaction): Coded Allergies: Pen-Vee K (Verified Allergy, Severe, 12/16/16) Penicillin (Verified Allergy, Severe, 12/16/16) Sulfa (Verified Allergy, Severe, 12/16/16) Zoloft (Verified Allergy, Unknown, 12/16/16) Enalapril (Verified Adverse Reaction, Severe, 12/16/16) PANIC ATTACKS Reported Meds & Prescriptions Reported Meds & Active Scripts Active Prilosec (Omeprazole) 20 Mg Cap 20 Mg PO DAILY Reported Artificial Tears Opth Drops (Polyvinyl Alcohol) 1.4% Soln 1-2 Drop EACH EYE PRN PRN Temazepam 30 Mg Cap 30 Mg PO HS PRN Famotidine 20 Mg Tab 20 Mg PO DAILY Dexamethasone 2 Mg Tab 4 Mg PO DAILY Wellbutrin Xl 24 HR (Bupropion HCl) 150 Mg Tab 300 Mg PO DAILY K-Tab (Potassium Chloride) 10 Meq Tab 10 Meq PO DAILY Metoprolol Tartrate 25 Mg Tab 12.5 Mg PO BID Bumex (Bumetanide) 1 Mg Tab 1 Mg PO DAILY Aspir-81 (Aspirin) 81 Mg Tabdr 81 Mg PO DAILY Coumadin (Warfarin) 3 Mg Tab 3 Mg PO DAILY@1600 Amiodarone (Amiodarone HCl) 200 Mg Tab 200 Mg PO DAILY Xanax (Alprazolam) 0.5 Mg Tab 0.5 Mg PO BID Review of Systems Except as stated in HPI: all other systems reviewed are Neg Physical Exam Narrative GENERAL:Well appearing, no acute distress SKIN: Focused skin assessment warm and dry. HEAD: Atraumatic. Normocephalic. EYES: Pupils equal and round. No injection or drainage. ENT: Moist mucous membranes NECK: Trachea midline. CARDIOVASCULAR: Regular rate and rhythm. No murmur appreciated. RESPIRATORY: Clear to auscultation. Breath sounds equal bilaterally. GASTROINTESTINAL: Abdomen soft, non-tender, nondistended. MUSCULOSKELETAL: No obvious deformities. NEUROLOGICAL: Awake and alert. No obvious cranial nerve deficits. Moving all extremities. No dysarthria or aphasia. No upper extremity ataxia. Normal gait. PSYCHIATRIC: Appropriate mood and affect; insight and judgment normal. Data Data Last Documented VS Vital Signs Date Time Temp Pulse Resp B/P Pulse Ox O2 Delivery O2 Flow Rate FiO2 12/16/16 13:30 97.7 64 20 169/70 96 Room Air MDM Medical Decision Making Medical Screen Exam Complete: Yes Emergency Medical Condition: Yes Medical Record Reviewed: Yes (patient was seen here in the emergency department on December 09 and at that time had blood work and a urinalysis which are reassuring as well as a CT scan of the head and a bedside ultrasound of her gallbladder.) Interpretation(s) Afebrile, no tachycardia, hypertensive Differential Diagnosis Depression, anxiety, stroke, electrolyte abnormality, urinary tract infection Narrative Course This is a 76-year-old female who presents to the emergency department with multiple nonspecific complaints that have been going on for months. She's been seen for symptoms similar to this twice in the past 2 months. She's had multiple evaluations performed both by us and by her primary care physician. Her daughter is requesting her to be admitted to the hospital for 3 days so she can go to rehabilitation. If this is possible she wants her to be under a [place] act because she feels like she is a harm to herself because she is not taking care of herself. Patient is eating, dressing herself and appears well kept. She has no thoughts of hurting herself or others. The patient is very articulate and doesn't want to be admitted psychiatrically although I did offer her a psychiatric evaluation in the ER. She is hopeful get her endoscopy performed tomorrow. I don't think there are any criteria by which I can hold her against her will. It seems like the family is frustrated taking care of this lady because she has some any somatic complaints and has been requesting a lot of them. I did speak to her primary care physician who agrees that this is likely psychiatric in nature. She wanted me to re-encourage this patient to follow-up with a mental health specialist. I encouraged the patient to follow-up with a psychiatrist and she said she would after she got her endoscopy. Diagnosis Primary Impression: Adult failure to thrive Patient Instructions: General Instructions Additional Instructions: If you develop severe chest pain, shortness of breath, sweating, lightheadedness , dizziness or difficulty breathing return to the emergency department immediately. Followup with your primary care physician in 2-3 days if your symptoms are not resolved. Med/Other Pt SpecificInfo: No Change to Meds Disposition: 01 DISCHARGE HOME Condition: Stable Parris Ocampo MD Dec 16, 2016 15:31
[2016-12-16 15:34] VITALS: BP 142/61
== END 2016-12-16 16:22 | disposition home or self-care (01) ==
LOC: NEPD 13:28
DX: R62.7 Adult failure to thrive (principal); H53.8 Other visual disturbances; R26.81 Unsteadiness on feet; R53.1 Weakness; R53.83 Other fatigue; I10 Essential (primary) hypertension; Z86.59 Personal history of other mental and behavioral disorders; Z87.39 Personal history of other diseases of the musculoskeletal system and connective tissue; Z86.79 Personal history of other diseases of the circulatory system
CPT/HCPCS: 99281

== ENCOUNTER 2017-01-21 14:16 | Emergency (ER) | payer MEDICARE ==
[~2017-01-21] VITALS: Ht 157.5 cm; Wt 53.2 kg
[2017-01-21 14:18] VITALS: BP 143/68; PULSE 67; RESP 16; TEMP 98; O2SAT 94
--- NOTE | 2017-01-21 15:20 | PD ---
HPI Chief Complaint: Fall Time Seen by Provider: 14:28 Travel History International Travel<30 days: No Contact w/Intl Traveler<30days: No Traveled to known affect area: No History of Present Illness HPI Patient is a 76-year-old female presents to emergency department after a slip and fall at a local grocery store. The patient states that she just tripped over the tile and fell forward hitting her face. She states that she does use Coumadin secondary to a valve replacement she had none in the spring of this year. She denies any chest pain shortness of breath abdominal pain nausea vomiting extremity injury head injury neck injury. She does endorse some mild right knee pain. Denies any loss of consciousness. PFSH Past Medical History Hx Anticoagulant Therapy: Yes Arthritis: Yes (KAMINI HANDS) Asthma: No Autoimmune Disease: No Blood Disorders: No Anxiety: Yes Depression: No Heart Rhythm Problems: Yes (TACHY) Cancer: No Cardiac Catheterization: Yes Cardiovascular Problems: Yes High Cholesterol: No Chest Pain: No Congestive Heart Failure: No COPD: No Cerebrovascular Accident: No Coronary Artery Disease: Yes Diabetes: No Diminished Hearing: No Endocrine: No Gastrointestinal Disorders: No Glaucoma: No Genitourinary: No Headaches: Yes (BASE SKULL MOVES UP HEAD) Hypertension: Yes Immune Disorder: No Implanted Vascular Access Dvce: No Musculoskeletal: No Neurologic: No Psychiatric: No Reproductive: No Respiratory: No Migraines: No Myocardial Infarction: No Seizures: No Thyroid Disease: No Menopausal: Yes Past Surgical History Abdominal Surgery: No AICD: No Arteriovenous Shunt: No Cardiac Surgery: Yes Coronary Artery Bypass Graft: Yes (2015) Ear Surgery: No Endocrine Surgery: No Eye Surgery: No Genitourinary Surgery: No Gynecologic Surgery: Yes (HYSTERECTOMY) Hysterectomy: Yes Insulin Pump: No Joint Replacement: No Neurologic Surgery: No Oral Surgery: No Pacemaker: No Thoracic Surgery: No Other Surgery: Yes (SURGERY TO FOOT APPROX. 1MONTH AGO) Social History Alcohol Use: No Tobacco Use: No Substance Use: No Allergies-Medications (Allergen,Severity, Reaction): Coded Allergies: Pen-Vee K (Verified Allergy, Severe, 12/16/16) Penicillin (Verified Allergy, Severe, 12/16/16) Sulfa (Verified Allergy, Severe, 12/16/16) Zoloft (Verified Allergy, Unknown, 12/16/16) Enalapril (Verified Adverse Reaction, Severe, 12/16/16) PANIC ATTACKS Reported Meds & Prescriptions Reported Meds & Active Scripts Active Prilosec (Omeprazole) 20 Mg Cap 20 Mg PO DAILY Reported Artificial Tears Opth Drops (Polyvinyl Alcohol) 1.4% Soln 1-2 Drop EACH EYE PRN PRN Temazepam 30 Mg Cap 30 Mg PO HS PRN Famotidine 20 Mg Tab 20 Mg PO DAILY Dexamethasone 2 Mg Tab 4 Mg PO DAILY Wellbutrin Xl 24 HR (Bupropion HCl) 150 Mg Tab 300 Mg PO DAILY K-Tab (Potassium Chloride) 10 Meq Tab 10 Meq PO DAILY Metoprolol Tartrate 25 Mg Tab 12.5 Mg PO BID Bumex (Bumetanide) 1 Mg Tab 1 Mg PO DAILY Aspir-81 (Aspirin) 81 Mg Tabdr 81 Mg PO DAILY Coumadin (Warfarin) 3 Mg Tab 3 Mg PO DAILY@1600 Amiodarone (Amiodarone HCl) 200 Mg Tab 200 Mg PO DAILY Xanax (Alprazolam) 0.5 Mg Tab 0.5 Mg PO BID Review of Systems Except as stated in HPI: all other systems reviewed are Neg Physical Exam Narrative GENERAL: Well-developed well-nourished distress. SKIN: Patient is a small abrasion between the upper lip and the naris, there is some small bruising over the left eye which the patient states that she thinks that was present prior to the fall. States she was rubbing her eye. HEAD: No Sanders's sign. Normocephalic. EYES: Pupils equal and round. No scleral icterus. No injection or drainage. ENT: No nasal bleeding or discharge. Mucous membranes pink and moist. NECK: Trachea midline. No JVD. CARDIOVASCULAR: Regular rate and rhythm. No murmur appreciated. RESPIRATORY: No accessory muscle use. Clear to auscultation. Breath sounds equal bilaterally. GASTROINTESTINAL: Abdomen soft, non-tender, nondistended. Hepatic and splenic margins not palpable. MUSCULOSKELETAL: No obvious deformities. No clubbing. No cyanosis. No edema. No midline CT or L-spine tenderness, pelvis stable, upper extremity is atraumatic, right lower knee has minimal bruise just medial of the proximal most tibia. Joint is stable. No joint effusion, full nontender range of motion. Remainder of the lower extremity exam is atraumatic. Pulses motor and sensory intact distally in all 4 extremities, compartments are soft. NEUROLOGICAL: Awake and alert. Cranial nerves II through XII are grossly intact , 5 out of 5 strength in all 4 extremity, pulse motor and sensory intact distally in all 4 extremities. PSYCHIATRIC: Appropriate mood and affect; insight and judgment normal. Data Data Last Documented VS Vital Signs Date Time Temp Pulse Resp B/P Pulse Ox O2 Delivery O2 Flow Rate FiO2 01/21/17 17:05 65 16 143/68 01/21/17 14:18 98.0 94 Orders Prothrombin Time / Inr (Pt) (01/21/17 14:51) Complete Blood Count With Diff (01/21/17 14:51) Ct Brain W/O Iv Contrast(Rout) (01/21/17 ) Ct Cerv Spine W/O Contrast (01/21/17 ) Knee, Complete (4vws) (01/21/17 ) Ct Facial Bones W/O Iv Cont (01/21/17 ) Labs Laboratory Tests Test 01/21/17 15:46 White Blood Count 9.0 TH/MM3 Red Blood Count 3.99 MIL/MM3 Hemoglobin 11.9 GM/DL Hematocrit 35.5 % Mean Corpuscular Volume 89.1 FL Mean Corpuscular Hemoglobin 29.8 PG Mean Corpuscular Hemoglobin 33.4 % Concent Red Cell Distribution Width 14.9 % Platelet Count 259 TH/MM3 Mean Platelet Volume 7.8 FL Neutrophils (%) (Auto) 62.0 % Lymphocytes (%) (Auto) 20.4 % Monocytes (%) (Auto) 14.1 % Eosinophils (%) (Auto) 2.8 % Basophils (%) (Auto) 0.7 % Neutrophils # (Auto) 5.5 TH/MM3 Lymphocytes # (Auto) 1.8 TH/MM3 Monocytes # (Auto) 1.3 TH/MM3 Eosinophils # (Auto) 0.3 TH/MM3 Basophils # (Auto) 0.1 TH/MM3 CBC Comment DIFF FINAL Differential Comment Prothrombin Time 40.2 SEC Prothromb Time International 3.4 RATIO Ratio MDM Medical Decision Making Medical Screen Exam Complete: Yes Emergency Medical Condition: Yes Differential Diagnosis Fall, head injury, Coumadin status. Narrative Course Patient roomed emerged permit, CT head ordered, C-spine, facial bones, right knee. Wound care to the abrasion on her upper lip, bleeding is slowing and was only minimally oozing on arrival. CT head and facial bones C-spine and x-ray of the right knee are all negative. The patient and related in the emergency department, basic wound care taken on her upper lip. She stable for discharge, discussed holding Coumadin for the next 2 days for follow-up the primary care physician and the physician who is checking her Coumadin levels. Diagnosis Primary Impression: Head injury, closed Qualified Code: S09.90XA - Head injury, closed, initial encounter Additional Instructions: Skip tonights dose of coumadin and tomorrow nights dose then continue as normally starting tuesday night. Disposition: 01 DISCHARGE HOME Condition: Stable Po Peña MD Jan 21, 2017 15:20
--- NOTE | 2017-01-21 15:43 | RADRPT ---
EXAM DATE/TIME: 01/21/2017 15:11 [facility] COMPARISON: No previous studies available for comparison. INDICATIONS : Right knee pain with bruising distal to the patella post fall. MEDICAL HISTORY : Cardiovascular disease. Hypertension. SURGICAL HISTORY : Hysterectomy. ENCOUNTER: Initial ACUITY: 1 day PAIN SCORE: 5/10 LOCATION: Right knee FINDINGS: No definite fractures, or dislocations are identified. No definite lytic or sclerotic lesion is seen . The joint spaces are well maintained. CONCLUSION: Unremarkable study. Gela Romero MD on January 21, 2017 at 15:41 Board Certified Radiologist. This report was verified electronically.
[2017-01-21 15:53] LABS: AUTOMATED NEUTROPHIL # 5.5 TH/MM3 (1.8-7.7); BASOPHIL # 0.1 TH/MM3 (0-0.2); BASOPHIL % 0.7 % (0.0-2.0); EOSINOPHIL # 0.3 TH/MM3 (0-0.4); EOSINOPHIL % 2.8 % (0.0-4.0); HEMATOCRIT 35.5 % (35.0-46.0); HEMO FLAGS DIFF FINAL; LYMPH % 20.4 % (9.0-44.0); LYMPHOCYTE # 1.8 TH/MM3 (1.0-4.8); MEAN CELL VOLUME 89.1 FL (80.0-100.0); MEAN CORPUSCULAR HEMOGLOBIN 29.8 PG (27.0-34.0); MEAN CORPUSCULAR HGB CONC 33.4 % (32.0-36.0); MONO % 14.1 % (0.0-8.0); PLATELET COUNT 259 TH/MM3 (150-450); RED BLOOD COUNT 3.99 MIL/MM3 (4.00-5.30); RED CELL DISTRIBUTION WIDTH 14.9 % (11.6-17.2)
--- NOTE | 2017-01-21 15:57 | RADRPT ---
EXAM DATE/TIME: 01/21/2017 15:21 [facility] COMPARISON: CT BRAIN W/O CONTRAST, December 09, 2016, 14:24. INDICATIONS : Trauma; fall on face. RADIATION DOSE: 63.71 CTDIvol (mGy) MEDICAL HISTORY : Cardiovascular disease. Hypertension. SURGICAL HISTORY : Hysterectomy. ENCOUNTER: Initial ACUITY: 1 day PAIN SCALE: 5/10 LOCATION: Bilateral cranial TECHNIQUE: Multiple contiguous axial images were obtained of the head. Using automated exposure control and adj ustment of the mA and/or kV according to patient size, radiation dose was kept as low as reasonably a chievable to obtain optimal diagnostic quality images. DICOM format image data is available electro nically for review and comparison. FINDINGS: CEREBRUM: Moderate cerebral atrophy. The ventricles are normal for degree of atrophy. No evidence of midline s hift, mass lesion, hemorrhage or acute infarction. No extra-axial fluid collections are seen. POSTERIOR FOSSA: The cerebellum and brainstem are intact. The 4th ventricle is midline. The cerebellopontine angle i s unremarkable. EXTRACRANIAL: The visualized portion of the orbits is intact. SKULL: The calvaria is intact. No evidence of skull fracture. CONCLUSION: 1. Senescent changes. 2. No acute intracranial abnormality. Butch Bull MD on January 21, 2017 at 15:53 Board Certified Radiologist. This report was verified electronically.
--- NOTE | 2017-01-21 16:03 | RADRPT ---
EXAM DATE/TIME: 01/21/2017 15:21 [facility] COMPARISON: CT BRAIN W/O CONTRAST, December 09, 2016, 14:24. INDICATIONS : Trauma; fall on face. RADIATION DOSE: 25.28 CTDIvol (mGy) MEDICAL HISTORY : Cardiovascular disease. Hypertension. SURGICAL HISTORY : Hysterectomy. ENCOUNTER: Initial ACUITY: 1 day PAIN SCALE: 5/10 LOCATION: Bilateral neck TECHNIQUE: Volumetric scanning of the cervical spine was performed. Multiplanar reconstructions in the sagittal, coronal and oblique axial planes were performed. Using automated exposure control and adjustment o f the mA and/or kV according to patient size, radiation dose was kept as low as reasonably achievable to obtain optimal diagnostic quality images. DICOM format image data is available electronically f or review and comparison. FINDINGS: Thin section axial imaging of the cervical spine was performed. Sagittal and coronal imaging demonstrate minimal anterolisthesis of C3 relative to C4. There are adva nced degenerative changes in the atlantodens joint. C1/2: There is degenerative changes in the atlantodens joint. No fracture is seen. C2/3: There is a degenerated disc. Thecal space and foramina are adequate there is facet arthritis bilatera lly. C3/4: There is mild facet arthritis bilaterally. There is a degenerated disc. The thecal space and the fora rah appear adequate. C4/5: There is a degenerated disc. There is mild facet arthritis bilaterally. The thecal space and foramina are adequate. C5/6: The thecal space is adequate. The foramina are adequate. There is mild facet arthritis bilaterally. C6/7: There is a degenerated disc. Thecal space and neural foramina are adequate. C7/T1: The thecal space is adequate. The neural foramina are adequate. No significant abnormality is identif ied. CONCLUSION: 1. Moderate degenerative changes throughout the cervical spine. No acute fracture identified. Yobany Lin MD on January 21, 2017 at 15:56 Board Certified Radiologist. This report was verified electronically.
--- NOTE | 2017-01-21 16:06 | RADRPT ---
EXAM DATE/TIME: 01/21/2017 15:21 [facility] COMPARISON: CT BRAIN W/O CONTRAST, December 09, 2016, 14:24. INDICATIONS : Trauma; fall on face. RADIATION DOSE: 25.68 CTDIvol (mGy) MEDICAL HISTORY : Cardiovascular disease. Hypertension. SURGICAL HISTORY : Hysterectomy. ENCOUNTER: Initial ACUITY: 1 day PAIN SCORE: 5/10 LOCATION: Bilateral facial TECHNIQUE: Volumetric scanning of the facial bones was performed. Using automated exposure control and adjustme nt of the mA and/or kV according to patient size, radiation dose was kept as low as reasonably achiev able to obtain optimal diagnostic quality images. DICOM format image data is available electronicall y for review and comparison. FINDINGS: ORBITS: The orbital and infraorbital osseous structures are intact. The retroconal structures have a normal configuration. No radiopaque foreign bodies are seen. NASAL BONE: The nasal bone and maxillary spine are intact ZYGOMATIC ARCHES: Symmetric without evidence of fracture. SINUSES: The maxillary, ethmoid and frontal sinuses are intact. No air-fluid levels seen. NASAL CAVITY: The nasal septum is intact and midline. The lacrimal ducts are intact. SOFT TISSUES: No radiopaque foreign bodies seen. No soft-tissue swelling is seen. INTRACRANIAL: No intracranial air seen. CRIBIFORM PLATE: Grossly intact. CONCLUSION: 1. No acute facial fracture identified. Yobany Lin MD on January 21, 2017 at 16:02 Board Certified Radiologist. This report was verified electronically.
[2017-01-21 16:16] LABS: INTERNATIONAL NORMALIZED RATIO 3.4 RATIO; PROTHROMBIN TIME - PATIENT 40.2 SEC (9.8-11.6)
[2017-01-21 17:05] VITALS: BP 143/68
== END 2017-01-21 17:06 | disposition home or self-care (01) ==
LOC: PHED 14:16
DX: S00.511A Abrasion of lip, initial encounter (principal); S00.31XA Abrasion of nose, initial encounter; S00.12XA Contusion of left eyelid and periocular area, initial encounter; M25.561 Pain in right knee; W01.0XXA Fall on same level from slipping, tripping and stumbling without subsequent striking against object, initial encounter; Y93.89 Activity, other specified; Y92.512 Supermarket, store or market as the place of occurrence of the external cause; I10 Essential (primary) hypertension; Z95.1 Presence of aortocoronary bypass graft
CPT/HCPCS: 70450; 70486; 72125; 73564; 85025; 85610